=== PATIENT | male | born 1990 | race Caucasian/White ===

== ENCOUNTER 2019-12-12 13:30 | Emergency (ER) | payer MEDICAID ==
[~2019-12-12] VITALS: Ht 182.9 cm; Wt 90.7 kg
[2019-12-12 13:42] VITALS: BP 115/67
--- NOTE | 2019-12-12 13:55 | NUR ---
PT AMBULATED TO ER BED 06
--- NOTE | 2019-12-12 14:24 | NUR ---
C/O INTERMITENT LEFT CHEST PAIN 5/10 NON RADIATING X TODAY. PT REPORTS HE USES MARIJUANA DAILY AND ADMITS TO DRINKING MULTIPLE CANS OF MONSTER YESTERDAY & 2 CANS X TODAY. PT DENIES NAUSEA. VS STABLE. A0X4. PT AMBULATORY HX: DENIES
[2019-12-12 14:50] LABS: BASOPHILS % (AUTO) 0.5 % (0.0-2.0); EOSINOPHILS # (AUTO) 0.1 K/uL (0-0.4); HEMATOCRIT 44.1 % (36-52); HEMOGLOBIN 14.8 g/dL (12.0-18.0); LYMPHOCYTES # (AUTO) 2.3 K/uL (2.0-11.5); MEAN CORPUSCULAR HEMOGLOBIN 31 pg (27-31); MEAN CORPUSCULAR HGB CONC 34 g/dL (33-37); MEAN CORPUSCULAR VOLUME 91.3 fL (80-94); MONOCYTES # (AUTO) 0.8 K/uL (0.8-1.0); MONOCYTES % (AUTO) 10.6 % (1.7-9.3); NEUTROPHILS # (AUTO) 4.1 K/uL (1.8-7.7); NEUTROPHILS % (AUTO) 55.9 % (42.2-75.2); PLATELET COUNT (AUTO) 321 K/uL (140-450); RED BLOOD CELL COUNT(AUTO) 4.83 MIL/uL (4.20-6.10); RED CELL DISTRIBUTION WIDTH 13.1 % (11.6-13.7); WHITE BLOOD COUNT (AUTO) 7.3 K/uL (4.8-10.8)
[2019-12-12 15:06] LABS: ALBUMIN 4.1 g/dL (3.4-5.0); ANION GAP 11.5 (8-16); CARBON DIOXIDE 30.8 mmol/L (21-32); CREATININE 1.6 mg/dL (0.6-1.3); POTASSIUM 4.3 mmol/L (3.5-5.1); TOTAL BILIRUBIN 0.6 mg/dL (0.0-1.0)
--- NOTE | 2019-12-12 15:48 | NUR ---
XRAY AT BEDSIDE
[2019-12-12 16:15] VITALS: BP 124/70
--- NOTE | 2019-12-12 16:15 | NUR ---
Patient discharged with v/s stable. Written and verbal after care instructions given and explained. Patient verbalized understanding. Ambulatory with steady gait. All questions addressed prior to discharge. PT ADVISED TO CHANGE LIFESTYLE HABITS INCLUDING CONSUMING LESS CAFFIENE AND LESS MAUIRJUANA.
== END 2019-12-12 16:15 | disposition home or self-care (01) ==
LOC: MED 13:30
DX: R07.9 Chest pain, unspecified (principal); E86.0 Dehydration
CPT/HCPCS: 36415; 71045; 80053; 83690; 84484; 85025; 93005; 99285; Q0092

== ENCOUNTER 2023-06-12 18:45 | Emergency (ER) | payer MEDICAID, OTHER ==
[~2023-06-12] VITALS: Ht 185.4 cm; Wt 95.3 kg
[2023-06-12 18:55] VITALS: BP 123/78; PULSE 87; RESP 18; TEMP 98.8; O2SAT 97
[2023-06-12] MEDS: ACETAMINOPHEN EXTRA STRENGTH 500 MG TAB PO ONE (19:55)
[2023-06-12] MEDS: KETOROLAC 30 MG/ML VIAL IM ONE (19:56)
[2023-06-12] MEDS: methocarbamoL 500 MG TAB PO ONE (19:56)
[2023-06-12 20:15] VITALS: O2SAT 98
[2023-06-12] MEDS ORDERED: ACET-10509 PO (21:00)
[2023-06-12] MEDS ORDERED: METH-1681 PO (21:00)
[2023-06-12] MEDS ORDERED: NAPR-54 PO (21:00)
== END 2023-06-12 21:07 | disposition home or self-care (01) ==
LOC: MED 18:45
DX: M54.6 Pain in thoracic spine (principal); M54.50 Low back pain, unspecified; Z79.899 Other long term (current) drug therapy; Z79.1 Long term (current) use of non-steroidal anti-inflammatories (NSAID)
CPT/HCPCS: 71045; 96372; 99283; J1885

== ENCOUNTER 2023-10-24 08:38 | Emergency (ER) | payer SELFPAY ==
[~2023-10-24] VITALS: Ht 185.4 cm; Wt 90.7 kg
[~2023-10-24 08:38] MED LIST: ACET-10509 PO; METH-1681 PO; NAPR-337 PO
[2023-10-24 08:53] VITALS: BP 129/80; PULSE 96; RESP 18; TEMP 97.8; O2SAT 99
[2023-10-24] MEDS: KETOROLAC 60 MG/2 ML VIAL IM ONE (09:21)
[2023-10-24] MEDS: DEXAMETHASONE 10 MG/ML VIAL IM ONE (09:21)
[2023-10-24 09:38] LABS: BASOPHILS % (AUTO) 0.4 % (0.0-2.0); EOSINOPHILS # (AUTO) 0.2 K/uL (0-0.4); EOSINOPHILS % (AUTO) 1.9 % (0.0-4.0); HEMATOCRIT 37.4 % (36-52); HEMOGLOBIN 12.4 g/dL (12.0-18.0); LYMPHOCYTES # (AUTO) 2.7 K/uL (2.0-11.5); LYMPHOCYTES % (AUTO) 26.4 % (20.5-51.1); MEAN CORPUSCULAR HEMOGLOBIN 28 pg (27-31); MEAN CORPUSCULAR HGB CONC 33 g/dL (33-37); MEAN CORPUSCULAR VOLUME 83.5 fL (80-94); MONOCYTES # (AUTO) 0.9 K/uL (0.8-1.0); MONOCYTES % (AUTO) 8.4 % (1.7-9.3); NEUTROPHILS # (AUTO) 6.4 K/uL (1.8-7.7); NEUTROPHILS % (AUTO) 62.9 % (42.2-75.2); PLATELET COUNT (AUTO) 506 K/uL (140-450); RED BLOOD CELL COUNT(AUTO) 4.47 MIL/uL (4.20-6.10); RED CELL DISTRIBUTION WIDTH 14.7 % (11.6-13.7); WHITE BLOOD COUNT (AUTO) 10.3 K/uL (4.8-10.8)
[2023-10-24 10:11] LABS: ANION GAP 10.6 (8-16); CALCIUM 8.7 mg/dL (8.5-10.1); CARBON DIOXIDE 29.7 mmol/L (21-32); CREATININE 0.9 mg/dL (0.6-1.3); POTASSIUM 4.3 mmol/L (3.5-5.1)
[2023-10-24 10:50] VITALS: BP 136/85; PULSE 95; RESP 18; TEMP 98; O2SAT 99
[2023-10-24] MEDS ORDERED: CYCL-711 PO (11:00)
[2023-10-24] MEDS ORDERED: METH4TAB1 PO (11:00)
== END 2023-10-24 11:07 | disposition home or self-care (01) ==
LOC: MED 08:38
DX: S16.1XXA Strain of muscle, fascia and tendon at neck level, initial encounter (principal); S39.012A Strain of muscle, fascia and tendon of lower back, initial encounter; S20.213A Contusion of bilateral front wall of thorax, initial encounter; Z79.899 Other long term (current) drug therapy; W01.198A Fall on same level from slipping, tripping and stumbling with subsequent striking against other object, initial encounter; Y93.89 Activity, other specified; Y92.89 Other specified places as the place of occurrence of the external cause; Y99.8 Other external cause status
CPT/HCPCS: 36415; 72050; 72110; 80048; 85025; 96372; 99284; J1100; J1885

== ENCOUNTER 2023-11-09 07:08 | Emergency (ER) | payer SELFPAY ==
[~2023-11-09] VITALS: Ht 185.4 cm; Wt 90.7 kg
[~2023-11-09 07:08] MED LIST changes: +CYCL-711 PO; +METH4TAB1 PO
[2023-11-09 07:09] VITALS: BP 131/76; PULSE 88; RESP 16; TEMP 97.9; O2SAT 100
[2023-11-09] MEDS ORDERED: CYCL-711 PO (07:46)
[2023-11-09] MEDS: diazePAM 5 MG TAB PO ONE (08:08)
[2023-11-09] MEDS: ACETAMINOPHEN EXTRA STRENGTH 500 MG TAB PO ONE (08:08)
[2023-11-09] MEDS: KETOROLAC 30 MG/ML VIAL IM ONE (08:09)
[2023-11-09 08:15] VITALS: BP 131/76; PULSE 88; RESP 16; TEMP 97.9; O2SAT 100
== END 2023-11-09 08:13 | disposition home or self-care (01) ==
LOC: MED 07:08
DX: M54.2 Cervicalgia (principal); M54.6 Pain in thoracic spine; Z79.899 Other long term (current) drug therapy
CPT/HCPCS: 96372; 99283; J1885